=== PATIENT | female | born 1980 | race Caucasian/White ===

== ENCOUNTER 2018-01-04 15:08 | Outpatient (CLI) | payer OTHER | END 2018-01-04 15:09 | disposition home or self-care (01) | LOC: DTY/OP 15:08 | PROVIDERS: ATTEND Surgery | DX: G47.30 Sleep apnea, unspecified (principal); Z98.84 Bariatric surgery status | CPT/HCPCS: 97802 ==

== ENCOUNTER 2018-03-01 13:58 | Outpatient (CLI) | payer OTHER | END 2018-03-01 13:59 | disposition home or self-care (01) | LOC: DTY/OP 13:58 | PROVIDERS: ATTEND Surgery | DX: G47.30 Sleep apnea, unspecified (principal) | CPT/HCPCS: 97802 ==

== ENCOUNTER 2018-04-03 08:32 | Outpatient (CLI) | payer OTHER | END 2018-04-03 08:33 | disposition home or self-care (01) | LOC: DTY/OP 08:32 | PROVIDERS: ATTEND Surgery | DX: G47.30 Sleep apnea, unspecified (principal) | CPT/HCPCS: 97802 ==

== ENCOUNTER 2018-05-07 16:30 | Inpatient (IN) | payer OTHER ==
[2018-05-14] MEDS ORDERED: CEFAZOLIN 2 GM/50 ML BAG ONE (06:26)
[2018-05-14] MEDS ORDERED: Heparin 5,000 UNITS/ML VIAL ONE (06:26)
[2018-05-14] MEDS ORDERED: Midazolam HCl 2 mg/2 ml Vial ONE (06:48)
[2018-05-14] MEDS ORDERED: Fentanyl 250 MCG/5 ML VIAL ONE (06:52)
[2018-05-14] MEDS ORDERED: Bupivacaine/Epinephrine 0.25% 30 ML VIAL ONE ×2 (07:05)
[2018-05-14] MEDS ORDERED: diphenhydrAMINE 50 MG/ML VIAL IVP PRN ×2 (08:42→09:05)
[2018-05-14] MEDS ORDERED: Promethazine HCl 25 MG/ML VIAL IM PRN ×3 (08:42→09:05)
[2018-05-14] MEDS ORDERED: hydrALAZINE 20 MG/ML VIAL SLOW IVP PRN (08:42)
[2018-05-14] MEDS ORDERED: Ondansetron PF 4 MG/2 ML Vial IVP PRN ×2 (08:42→09:05)
[2018-05-14] MEDS ORDERED: Dextrose 50% Abboject 50 ML SYRINGE SLOW IVP PRN (08:42)
[2018-05-14] MEDS ORDERED: Hydrocodone-Acetamin 15 ML UDCUP PO PRN (08:42)
[2018-05-14] MEDS ORDERED: Dextrose 5% in Water 1,000 ML IV PRN (08:42)
[2018-05-14] MEDS ORDERED: Promethazine HCl 25 MG/ML VIAL SLOW IVP PRN (08:51)
[2018-05-14] MEDS ORDERED: Ondansetron HCl/PF 4 MG/2 ML Vial IVP PRN (08:51)
[2018-05-14] MEDS ORDERED: Fentanyl 100 MCG/2 ML VIAL ONE (08:55)
[2018-05-14] MEDS ORDERED: Naloxone HCl 0.4 mg/ml Vial IV PRN (09:05)
[2018-05-14] MEDS ORDERED: Zolpidem Tartrate 5 MG TAB PO PRN (09:05)
[2018-05-14] MEDS ORDERED: diphenhydrAMINE 50 MG/ML VIAL IM PRN (09:05)
[2018-05-14] MEDS ORDERED: fentaNYL Citrate/PF 2,000 MCG in Sodium Chloride 0.9% 60 ML IV PRN (09:05)
[2018-05-14] MEDS ORDERED: diphenhydrAMINE 25 MG CAP PO PRN (09:05)
[2018-05-14] MEDS ORDERED: Communication Order-Pharmacy FS SCH (09:15)
--- NOTE | 2018-05-14 09:59 | OP ---
DATE OF PROCEDURE: 05/14/2018 PREOPERATIVE DIAGNOSIS: Morbid obesity. PROCEDURE PERFORMED: Laparoscopic sleeve gastrectomy with esophagogastroscopy. INDICATIONS: A 37-year-old female, morbidly obese, who has attempted multiple weight loss programs without success. FINDINGS: A 38-Bangl[place]hi bougie used. DESCRIPTION OF PROCEDURE: After informed consent was obtained, the patient was taken to the operating room and given general endotracheal anesthesia, placed in the supine position, abdomen was prepped and draped in usual fashion. Local anesthesia was infiltrated subcutaneously and deep, and a 12 mm incision was performed 8 inches below the xiphoid slightly to the left. Veress needle inserted. Drop test performed. Pneumoperitoneum was created to a volume of 2 L of carbon dioxide. Utilizing a bladeless 12-mm trocar and 0-degree laparoscope, direct visual entry into the abdominal cavity was performed. Pneumoperitoneum was created to a pressure of 15 mmHg and the patient placed in steep reverse Trendelenburg position. Marilynn liver retractor inserted. Left lobe of the liver retracted superiorly. The pylorus identified. A 12-mm port placed on the right beneath it and two 12s placed left subcostal. The omentum was taken off the greater curvature 5 cm from the pylorus utilizing the LigaSure, short gastrics divided with LigaSure and the left with the LigaSure. A 38-Bangladeshi bougie inserted directed into the antrum. The linear 60 mm green-load stapler used to divide the antrum to the bougie, a gold load along the bougie, and a series of blue through the angle of His. Intraoperative endoscopy was performed. The video endoscope inserted under direct vision, advanced into the sleeve. The staple line inspected. There was no bleeding. Staple line then tested by inflating the new stomach with pressurized air under water and there was no air leak. The stomach decompressed. Scope removed. The remnants of the stomach removed from the abdomen through the left lateral port site. The fascia was closed with 0 Vicryl suture and the GraNee needle. Trocars and retractors were removed. Skin closed with interrupted 4-0 Rapide. Dermabond applied. The patient tolerated the procedure well, transferred to Recovery in good condition. Sponge and needle count verified and correct x2. Job ID: [id number]
[2018-05-14 10:18] VITALS: BMI 46.5
[2018-05-14] MEDS: Enoxaparin Sodium 40 MG/0.4 ML SYRINGE SC SCH (10:37)
[2018-05-14] MEDS: D5 1/2 NS w/20 mEq KCL 1,000 ML IV SCH ×3 (11:22→21:35)
[2018-05-14] MEDS: Pantoprazole 40 MG VIAL IVP SCH (11:22)
[2018-05-14] MEDS ORDERED: Ketorolac Tromethamine 30 MG/ML VIAL IVP SCH (12:00)
[2018-05-14] MEDS: Ketorolac Tromethamine 30 MG/ML VIAL IVP SCH ×2 (13:51→20:00)
[2018-05-14] MEDS: CEFAZOLIN 2 GM/50 ML-DEXTROSE 2 GM in Premix Bag 1 BAG IVPB SCH ×2 (13:52→21:31)
[2018-05-14] MEDS ORDERED: CEFAZOLIN/Water 2 GM/20 ML SYRINGE SLOW IVP SCH (14:00)
[2018-05-14] MEDS ORDERED: PHENYLEPHRINE-NS 100 MCG/ML 10 ML SYRINGE ONE (20:16)
[2018-05-14] MEDS ORDERED: Ketorolac Tromethamine 30 MG/ML VIAL ONE (20:16)
[2018-05-14] MEDS ORDERED: ePHEDrine/0.9% NaCl/PF SYRINGE 50 mg/10 ml ONE (20:16)
[2018-05-14] MEDS ORDERED: Lidocaine 1% PF 5 ML VIAL ONE (20:16)
[2018-05-14] MEDS ORDERED: Ondansetron PF 4 MG/2 ML Vial ONE (20:16)
[2018-05-14] MEDS ORDERED: PROPOFOL 200 MG/20 ML VIAL ONE (20:16)
[2018-05-14] MEDS ORDERED: Glycopyrrolate 0.2 MG/ML 5 ML SYRINGE ONE (20:16)
[2018-05-15] MEDS: D5 1/2 NS w/20 mEq KCL 1,000 ML IV SCH ×2 (01:34→11:53)
[2018-05-15] MEDS: Ketorolac Tromethamine 30 MG/ML VIAL IVP SCH ×2 (02:32→08:42)
[2018-05-15 06:39] LABS: #Eosinphils 0.1 thou/uL (0.0-0.7); #Lymphocytes 1.7 thou/uL (1.20-3.40); #Monocytes 0.7 thou/uL (0.11-0.59); #Neutrophils 2.5 thou/uL (1.40-6.50); %Basophils 0.8 % (0.0-1.0); %Eosinophils 2.1 % (0.0-10.0); %Lymphocytes 34.2 % (21.0-51.0); %Monocytes 12.8 % (0.0-10.0); Hemoglobin 11.6 g/dL (12.0-16.0); Mean Corpuscular HGB CONC 33.9 g/dL (32.0-36.0); Mean Corpuscular Hemoglobin 30.5 pg (27.0-31.0); Mean Corpuscular Volume 90.2 fL (78.0-98.0); Mean Platelet Volume 8.7 fL (7.4-10.4); Platelet Count 151 thou/uL (130-400); Red Blood Cell (RBC) Count 3.79 mill/uL (4.20-5.40)
[2018-05-15 06:59] LABS: Anion Gap 8 mmol/L (10-20); BUN (Urea Nitrogen) 6 mg/dL (7.0-18.7); Calc. Creatinine Clearance 241 mL/min (70-130); Calcium 8.5 mg/dL (7.8-10.44); Carbon Dioxide 27 mmol/L (22-29); Chloride 108 mmol/L (98-107); Estimated GFR-MDRD 82; Glucose 110 mg/dL (70-105); Sodium 139 mmol/L (136-145)
[2018-05-15] MEDS: Pantoprazole 40 MG VIAL IVP SCH (08:42)
[2018-05-15] MEDS: Enoxaparin Sodium 40 MG/0.4 ML SYRINGE SC SCH (08:42)
[2018-05-15] MEDS ORDERED: Hydrocodone-Acetamin 15 ML UDCUP PO PRN (09:39)
--- NOTE | 2018-05-15 09:42 | RAD ---
LIMITED UPPER GI WITH ORAL GASTROGRAFIN: History: Recent bariatric surgery. FINDINGS: There is prompt passage of contrast from the esophagus into the stomach. No contrast extravasation is seen. IMPRESSION: No evidence of obstruction or leak. POS: [facility]
[2018-05-15 12:59] VITALS: BP 109/73; TEMP 97.9
--- NOTE | 2018-05-15 13:36 | DIS ---
DATE OF ADMISSION: 05/14/2018 DATE OF DISCHARGE: 05/15/2018 DISCHARGE DIAGNOSIS: Morbid obesity. PROCEDURES DURING ADMISSION: Laparoscopic sleeve gastrectomy, intraoperative esophagogastroscopy, and postoperative Gastrografin swallow. HOSPITAL COURSE: The patient was admitted, taken to surgery, had sleeve, did well, is tolerating liquids. Pain controlled on p.o. medications. Discharged home on hydrocodone and Zofran. Follow up with me in 2 weeks. Job ID: [id number]
== END 2018-05-15 13:05 | disposition home or self-care (01) | DRG 621 ==
LOC: SURG A 05-14 05:56
PROVIDERS: ADMIT Surgery; ATTEND Surgery
PROC: 0DB64Z3 Excision of Stomach, Percutaneous Endoscopic Approach, Vertical (ICD-10-PCS; principal; 2018-05-14)
DX: E66.01 Morbid (severe) obesity due to excess calories (principal); Z68.42 Body mass index [BMI] 45.0-49.9, adult
CPT/HCPCS: 36415; 74241; 80048; 85025; 88307; 88312; 94760; C9113; J1644; J1650; J1885; J2001; J2250; J2405; J2704; J3010

== ENCOUNTER 2018-05-07 16:37 | Outpatient (CLI) | payer OTHER ==
[2018-05-07 17:19] LABS: #Eosinphils 0.1 thou/uL (0.0-0.7); #Lymphocytes 2.3 thou/uL (1.20-3.40); #Monocytes 0.6 thou/uL (0.11-0.59); #Neutrophils 3.1 thou/uL (1.40-6.50); %Basophils 0.5 % (0.0-1.0); %Eosinophils 1.9 % (0.0-10.0); %Lymphocytes 37.3 % (21.0-51.0); %Monocytes 9.7 % (0.0-10.0); %Neutrophils 50.5 % (42.0-75.0); Hemoglobin 13.3 g/dL (12.0-16.0); Mean Corpuscular HGB CONC 34.6 g/dL (32.0-36.0); Mean Corpuscular Hemoglobin 30.7 pg (27.0-31.0); Mean Corpuscular Volume 88.7 fL (78.0-98.0); Mean Platelet Volume 8.1 fL (7.4-10.4); Platelet Count 216 thou/uL (130-400); RBC Distribution Width 12.1 % (11.5-14.5); Red Blood Cell (RBC) Count 4.33 mill/uL (4.20-5.40); White Blood Cell (WBC) Count 6.1 thou/uL (4.8-10.8)
[2018-05-07 17:37] LABS: Hemoglobin A1c 5.1 % (4.0-6.0)
[2018-05-07 17:41] LABS: ALT (SGPT) 24 U/L (8-55); AST (SGOT) 19 U/L (5-34); Albumin 4.3 g/dL (3.5-5.0); Alkaline Phosphatase 91 U/L (40-150); Anion Gap 10 mmol/L (10-20); BUN (Urea Nitrogen) 18 mg/dL (7.0-18.7); Bilirubin, Direct 0.2 mg/dL (0.1-0.3); Bilirubin, Total 0.4 mg/dL (0.2-1.2); Calc. Creatinine Clearance 0 mL/min (70-130); Calcium 9.2 mg/dL (7.8-10.44); Carbon Dioxide 27 mmol/L (22-29); Chloride 104 mmol/L (98-107); Estimated GFR-MDRD 71; Globulin 3.1 g/dL (2.4-3.5); Glucose 93 mg/dL (70-105); Potassium 3.9 mmol/L (3.5-5.1); Protein, Total 7.4 g/dL (6.0-8.3); Sodium 137 mmol/L (136-145)
[2018-05-07 17:42] LABS: BHCG - Serum Negative (NEGATIVE); Pregs Control Background? CLEAR/WHITE (CLR/WHITE); Pregs Control Bar Appear? YES (CONTROL BAR)
--- NOTE | 2018-05-07 18:08 | RAD ---
TWO VIEWS CHEST: Date: 05-07-18 Comparison: None. History: Pre-operative patient. FINDINGS: There is no pneumothorax, pleural fluid, focal consolidation, or alveolar edema. Heart and mediastina l contours are grossly unremarkable. IMPRESSION: No acute findings. POS: [facility]
== END 2018-05-07 16:38 | disposition home or self-care (01) ==
LOC: LABBT 16:37
PROVIDERS: ATTEND Surgery
DX: Z01.818 Encounter for other preprocedural examination (principal); E66.01 Morbid (severe) obesity due to excess calories
CPT/HCPCS: 71046; 80053; 80076; 83036; 84703; 85025; 93005; 93010

== ENCOUNTER 2018-11-26 08:49 | Outpatient (CLI) | payer BC ==
--- NOTE | 2018-11-26 10:05 | MMO ---
Bilateral MAMMO Bilat Diag [facility]. CLINICAL HISTORY: Patient is 37 years old and is seen for diagnostic exam and lump or thickening in the left breast. The patient has no family history of breast cancer. The patient has no personal history of cancer. The patient has a history of right Cyst Aspiration in 2015 - RIGHT BREAST ABCESS THAT HAD TO BE LANCED AND PACK. VIEWS: The views performed were: bilateral craniocaudal with tomosynthesis; bilateral mediolateral oblique with tomosynthesis; and bilateral mediolateral with tomosynthesis. FILMS COMPARED: The present examination has been compared to a prior imaging study performed at [facility] on 11/26/2018. MAMMOGRAM FINDINGS: There are scattered fibroglandular densities. There is an oval mass measuring 9 millimeters with circumscribed margins seen in the posterior region of the left breast at 8 o'clock located 16 centimeters from the nipple. In the right breast, there are no suspicious masses, calcifications or areas of architectural distortion. IMPRESSION: MASS IN THE LEFT BREAST IS SUSPICIOUS. BIOPSY IS RECOMMENDED. D/W PATIENT IN PERSON ON 11/26/2018. D/W DR. DR. CHERRIE CLARKE OVER THE PHONE AT 10:04 AM ON 11/26/2018. THE RESULTS OF THIS EXAM WERE SENT TO THE PATIENT. ACR BI-RADS Category 4 - Suspicious abnormality - biopsy should be considered MAMMOGRAPHY NOTE: 1. A negative mammogram report should not delay a biopsy if a dominant of clinically suspicious mass is present. 2. Approximately 10% to 15% of breast cancers are not detected by mammography. 3. Adenosis and dense breasts may obscure an underlying neoplasm.
--- NOTE | 2018-11-26 13:06 | ULT ---
ULTRASOUND LEFT BREAST LIMITED: DATE: 11/26/2018. HISTORY: A 37-year-old female with palpable lump in left breast. TECHNIQUE: Focused ultrasound of the region of the palpable lump at the far medial, posterior inner left breast. FINDINGS: At the 8 o'clock position at the far inferior and medial portion of the left breast close to the ster num, there is a 0.9 x 0.4 x 0.8 cm well-circumscribed, wider than tall, heterogeneously hypoechoic ma ss with circumscribed margins. There is no acoustic shadowing. No blood flow is demonstrated within the mass by Doppler. This is likely to be either a fibroadenoma or a dermal inclusion cyst. There is a small possibility that this could be a low grade breast cancer with atypical imaging characteris tics. The options of following this serially with ultrasounds and mammograms at 6 months, 1 year, an d 2 years; versus surgical excisional biopsy (with or without ultrasound-guided needle localization p receding it); versus ultrasound-guided biopsy, were discussed between the interpreting radiologist an d the patient immediately after the ultrasound. The possible technical difficulties with ultrasound- guided biopsy because of the location of the mass (such that the skin and the lesion itself are very close to the rib cage and chest wall musculature). Nevertheless, ultrasound-guided biopsy probably c an be performed successfully. The ultrasound-guided biopsy was chosen. Dr. Pruitt discussed the findin g and recommendation by telephone with Dr. Eladio Kingston at 10:10 a.m. on 11/26/2018. IMPRESSION: 1. BIRADS 4A-suspicious. Biopsy should be considered. 2. An approximately 1 cm mass in the left far posterior inner inferior breast, both superficially lo cated and very close to the chest wall and sternum. 3. Recommend ultrasound-guided left breast biopsy. POS: [facility]
== END 2018-11-26 08:50 | disposition home or self-care (01) ==
LOC: BICMAMMO 08:49
PROVIDERS: ATTEND Physician Assistant
DX: N63.20 Unspecified lump in the left breast, unspecified quadrant (principal)
CPT/HCPCS: 77066; G0279

== ENCOUNTER → 2018-12-07 | Day surgery (SDC) | payer BC ==
--- NOTE | 2018-12-07 13:59 | MMO ---
Left Breast MAMMO Unilat Diag [facility]. CLINICAL HISTORY: Patient is 37 years old and is seen for diagnostic exam. The patient has no family history of breast cancer. The patient has no personal history of cancer. The patient has a history of right Cyst Aspiration in 2015 - RIGHT BREAST ABCESS THAT HAD TO BE LANCED AND PACK. VIEWS: The views performed were: left craniocaudal and left mediolateral oblique. FILMS COMPARED: The present examination has been compared to a prior imaging study performed at [facility] on 11/26/2018. MAMMOGRAM FINDINGS: Clip position is appropriate. IMPRESSION: FINDING IN THE LEFT BREAST IS CONFIRMED UTILIZING POST PROCEDURE MAMMOGRAM. THE RESULTS OF THIS EXAM WERE SENT TO THE PATIENT. MAMMOGRAPHY NOTE: 1. A negative mammogram report should not delay a biopsy if a dominant of clinically suspicious mass is present. 2. Approximately 10% to 15% of breast cancers are not detected by mammography. 3. Adenosis and dense breasts may obscure an underlying neoplasm. Reported by: MOSHE ROSENBAUM MD Electonically Signed: [id number]
--- NOTE | 2018-12-07 16:24 | ULT ---
LEFT BREAST BIOPSY WITH ULTRASOUND GUIDANCE 12/07/18 HISTORY: Solid hypoechoic mass in the left breast noted on previous diagnostic ultrasound. FINDINGS: Successful ultrasound guided biopsy of a hypoechoic mass just underneath the skin along the medial in ferior aspect of the left breast. A total of three 18 gauge core biopsy samples were obtained and porsche jeff directly in formalin. Post biopsy clip was placed. No immediate or postprocedure complications. TECHNIQUE: Consent obtained to perform an ultrasound guided biopsy of a hypoechoic mass along the inferomedial a spect of the left breast. Given the subdermal location, 18 gauge core biopsy samples were performed. 1% lidocaine, buffered with sodium bicarbonate used for local anesthesia. Total of four samples were performed. Post biopsy clip was placed. No immediate or postprocedure complication. IMPRESSION: Successful ultrasound guided left breast biopsy. Final pathologic diagnosis is pending. POS: [facility]
== END ==
LOC: BICULT 12:18
PROVIDERS: ATTEND Physician Assistant
PROC: 0HBU3ZX Excision of Left Breast, Percutaneous Approach, Diagnostic (ICD-10-PCS; principal; 2018-12-07)
DX: N61.0 Mastitis without abscess (principal); N64.89 Other specified disorders of breast
CPT/HCPCS: 19083; 88305

== ENCOUNTER 2025-05-09 07:42 | Outpatient (CLI) | payer BC | END 2025-05-09 07:43 | disposition home or self-care (01) | LOC: BICMRI 07:42 | PROVIDERS: ATTEND Orthopaedic Surgery | DX: M23.92 Unspecified internal derangement of left knee (principal); S83.212A Bucket-handle tear of medial meniscus, current injury, left knee, initial encounter; R93.7 Abnormal findings on diagnostic imaging of other parts of musculoskeletal system; M25.462 Effusion, left knee ==

== ENCOUNTER 2025-05-20 07:00 | Day surgery (SDC) | payer BC ==
[2025-05-20] MEDS ORDERED: PROPOFOL 20 ML ONE ×2 (07:39→09:49)
[2025-05-20] MEDS ORDERED: Ondansetron PF 4 MG/2 ML Vial ONE (09:49)
[2025-05-20] MEDS ORDERED: Lidocaine 1% PF 5 ML VIAL ONE (09:49)
[2025-05-20] MEDS ORDERED: fentaNYL PF 100 MCG/2 ML SYRINGE ONE (09:55)
[2025-05-20] MEDS ORDERED: CEFAZOLIN 2 GM VIAL ONE (09:58)
[2025-05-20] MEDS ORDERED: HYDROcodone/Acetaminophen 5/325 mg Tablet ONE (12:57)
== END 2025-05-20 14:00 | disposition home or self-care (01) ==
LOC: SDC 07:00
PROVIDERS: ATTEND Orthopaedic Surgery
PROC: 0SBD4ZZ Excision of Left Knee Joint, Percutaneous Endoscopic Approach (ICD-10-PCS; principal; 2025-05-20)
PROC: 3E0T3BZ Introduction of Anesthetic Agent into Peripheral Nerves and Plexi, Percutaneous Approach (ICD-10-PCS; principal; 2025-05-20)
DX: S83.212A Bucket-handle tear of medial meniscus, current injury, left knee, initial encounter (principal); S83.282A Other tear of lateral meniscus, current injury, left knee, initial encounter; M17.12 Unilateral primary osteoarthritis, left knee; M23.92 Unspecified internal derangement of left knee; E66.01 Morbid (severe) obesity due to excess calories; Z68.30 Body mass index [BMI] 30.0-30.9, adult; Z98.84 Bariatric surgery status; Z90.89 Acquired absence of other organs; X58.XXXA Exposure to other specified factors, initial encounter; Y93.53 Activity, golf
CPT/HCPCS: J0166; J0665; J1100; J2405; J2704